=== PATIENT | female | born 1990 | race Caucasian/White ===

== ENCOUNTER 2020-08-08 13:03 | Inpatient (IN) | payer OTHER ==
[~2020-08-08] VITALS: Ht 157.5 cm; Wt 75.7 kg
[~2020-08-08 13:03] MED LIST: HYDROXYZINE HCL25 MG PO; NORCO 5-325 TA1 EACH PO
[2020-08-08] MEDS ORDERED: FERROUS SULFAT325 M2 PO (13:55)
[2020-08-08] MEDS ORDERED: FLINTSTONES1 EAC1 PO (13:55)
[2020-08-08 14:42] LABS: HEMOGLOBIN 11.7 gm/dl (12.3-15.3); RED BLOOD COUNT 3.67 M/UL (4.00-5.10); WHITE BLOOD COUNT 10.8 K/UL (4.5-11.0)
[2020-08-10 06:04] LABS: HEMOGLOBIN 9.9 gm/dl (12.3-15.3)
== END 2020-08-10 18:50 | disposition home or self-care (01) | DRG 807 ==
LOC: GENOP 13:03 → OB 13:29
PROVIDERS: Obstetrics & Gynecology; ADMIT Obstetrics & Gynecology
PROC: 4A1HXCZ Monitoring of Products of Conception, Cardiac Rate, External Approach (ICD-10-PCS; 2020-08-08)
PROC: 10E0XZZ Delivery of Products of Conception, External Approach (ICD-10-PCS; principal; 2020-08-09)
PROC: 10907ZC Drainage of Amniotic Fluid, Therapeutic from Products of Conception, Via Natural or Artificial Opening (ICD-10-PCS; 2020-08-09)
PROC: 3E033VJ Introduction of Other Hormone into Peripheral Vein, Percutaneous Approach (ICD-10-PCS; 2020-08-09)
DX: O41.03X0 Oligohydramnios, third trimester, not applicable or unspecified (principal); Z37.0 Single live birth; Z3A.40 40 weeks gestation of pregnancy; Z20.822 Contact with and (suspected) exposure to COVID-19; O48.0 Post-term pregnancy; O99.344 Other mental disorders complicating childbirth; F41.9 Anxiety disorder, unspecified
CPT/HCPCS: 36415; 51702; 81001; 82800; 85014; 85018; 85025; 90707; J2405; J2590; J7120; U0002